=== PATIENT | male | born 2005 | race Two or more races ===

== ENCOUNTER 2023-12-03 20:20 | Emergency (ER) | payer OTHER ==
[~2023-12-03] VITALS: Ht 167.6 cm; Wt 54.4 kg
[2023-12-03] MEDS ORDERED: LIDOCAINE HCL 1% 2ML VIAL IJ STA (21:29)
[2023-12-03] MEDS ORDERED: LIDOCAINE HCL 1% 10ML VIAL ONE ×2 (22:04→23:58)
[2023-12-03] MEDS ORDERED: HYDROGEN PEROXIDE 473 ML BOTTLE TOP ONE (22:08)
[2023-12-04] MEDS ORDERED: AZITHROMYCIN 500 MG TABLET PO STA (00:39)
[2023-12-04] MEDS ORDERED: KETOROLAC TROMETHAMINE 60 MG VIAL IM STA (00:39)
[2023-12-04] MEDS ORDERED: KETOROLAC TROMETHAMINE 60 MG VIAL IM ONE (00:43)
[2023-12-04] MEDS ORDERED: AZITHROMYCIN 500 MG TABLET PO ONE (00:43)
== END 2023-12-04 01:02 | disposition home or self-care (01) ==
LOC: EMR PED 20:22 → ER 20:22 → EMR PED 21:47
DX: S41.112A Laceration without foreign body of left upper arm, initial encounter (principal); W45.8XXA Other foreign body or object entering through skin, initial encounter; Y93.02 Activity, running; Y92.89 Other specified places as the place of occurrence of the external cause; Y99.9 Unspecified external cause status; Z88.8 Allergy status to other drugs, medicaments and biological substances